=== PATIENT | female | born 1960 | race Caucasian/White ===

== ENCOUNTER 2019-01-16 10:02 | Day surgery (SDC) | payer BC ==
[2019-01-16] MEDS ORDERED: MIDAZOLAM 1 MG/ML 2 ML INJ ×2 (11:41)
[2019-01-16] MEDS ORDERED: FENTAnyl 50 MCG/ML VIAL (11:41)
== END 2019-01-16 12:31 | disposition home or self-care (01) ==
LOC: GIL 10:02
DX: Z12.11 Encounter for screening for malignant neoplasm of colon (principal); K62.1 Rectal polyp
CPT/HCPCS: 45380; 88305